=== PATIENT | female | born 1950 | race Caucasian/White ===

== ENCOUNTER 2019-05-02 18:27 | Emergency (ER) | payer BC ==
[2019-05-02 18:46] VITALS: TEMP 98.3; BMI 31.6
[2019-05-02] MEDS ORDERED: KETOROLAC TROMETHAMINE 60 MG/2 ML VIAL ONE (19:17)
[2019-05-02] MEDS ORDERED: KETOROLAC TROMETHAMINE 60 MG/2 ML VIAL IM ONE (19:21)
[2019-05-02] MEDS ORDERED: PROPOFOL 20 ML ONE (19:43)
--- NOTE | 2019-05-02 22:13 | PDOC ---
Documentation entered by Martinez Celaya SCRIBE, acting as scribe for Thais Meyers MD. Thais Meyers MD: This documentation has been prepared by the Belia shea Elijah, SCRIBE, under my direction and personally reviewed by me in its entirety. I confirm that the documentation accurately reflects all work, treatment, procedures, and medical decision making performed by me. History of Present Illness - General Chief Complaint: Injury Stated Complaint: RIGHT ARM/SHOULDER INJURY - History of Present Illness Initial Comments: 05/02/19 19:23 Patient is a 68 year old female with a significant past medical history of diverticulitis, varicose veins in lower extremities HTN, HLD and hypothyroidism who presents to the ED from [facility] with a right shoulder injury. Patient was walking yesterday around 2 pm when she tripped on wires and fell forward. Patient landed on her right shoulder but denies hitting her head, face and chest on the fall. Today the patient was seen by Dr. Gomez at [facility], where X-Rays were done and she was told to come to the ED. Allergies: NKDA PCP: Dr. Boston Past History - Past Medical History Allergies/Adverse Reactions: Allergies Allergy/AdvReac Type Severity Reaction Status Date / Time No Known Drug Allergies Allergy Verified 05/02/19 18:28 Home Medications: Ambulatory Orders Levothyroxine [Synthroid -] 88 mcg PO DAILY@0700 #0 tablet 03/16/14 Lisinopril [Prinivil] 10 mg PO DAILY #0 tablet 03/16/14 Ketorolac Tromethamine [Toradol] 10 mg PO TID PRN #15 tablet 05/02/19 Oxycodone HCl/Acetaminophen [Percocet 5-325 mg Tablet] 1 tab PO Q6H PRN #10 tablet MDD 4 tabs 05/02/19 Anemia: No Asthma: No Cancer: No Cardiac Disorders: No CVA: No COPD: No CHF: No Dementia: No Diabetes: No GI Disorders: Yes (DIVERTICULOSIS) Disorders: No HTN: Yes Hypercholesterolemia: Yes Liver Disease: No Seizures: No Thyroid Disease: Yes - Surgical History Orthopedic Surgery: Yes (LEFT ANKLE SX FRACTURE X2) - Suicide/Smoking/Psychosocial Hx Smoking History: Never smoked Have you smoked in the past 12 months: No Number of Cigarettes Smoked Daily: 0 Information on smoking cessation initiated: No Hx Alcohol Use: No Drug/Substance Use Hx: No Substance Use Type: None Hx Substance Use Treatment: No Review of Systems - Review of Systems Comments:: 05/02/19 19:23 All systems are reviewed and negative except as noted in the HPI *Physical Exam - Vital Signs Last Vital Signs Temp Pulse Resp BP Pulse Ox 98.3 F 56 L 16 178/60 H 99 05/02/19 18:28 05/02/19 18:28 05/02/19 18:28 05/02/19 18:28 05/02/19 18:28 - Physical Exam Comments: 05/02/19 19:24 GENERAL: Awake, alert, and fully oriented, in no acute distress HEAD: No signs of trauma EYES: PERRLA, EOMI, sclera anicteric, conjunctiva clear ENT: Auricles normal inspection, hearing grossly normal, nares patent, oropharynx clear without exudates. Moist mucosa NECK: Normal ROM, supple, no lymphadenopathy, JVD, or masses LUNGS: Breath sounds equal, clear to auscultation bilaterally. No wheezes, and no crackles HEART: Regular rate and rhythm, normal S1 and S2, no murmurs, rubs or gallops ABDOMEN: Soft, nontender, normoactive bowel sounds. No guarding, no rebound. No masses EXTREMITIES: +Pain in proximal portion in R Humerus with pain on abduction of upper arm. +Radial Pulse briskly palpable. No deformity in R Shoulder or pain in Elbow and wrist. NEUROLOGICAL: Cranial nerves II through XII intact. Normal speech, normal gait SKIN: Warm, Dry, normal turgor, no rashes or lesions noted. CD of R Shoulder/ R Humerus X-Ray performed at [facility] was brought in by the patient. This was reviewed: anterior dislocation of Right shoulder, No fracture evident. Procedures - Joint Reduction Right Joint Reduction Site: right: Shoulder Pre-Procedure NV Exam: normal Conscious Sedation: Yes Reduction Attempts: 2 Procedure: Other (external rotation) Post-Procedure NV Exam: normal Complications: No Post Joint Reduction Film: questionable fracture fragment Splint: Yes Immobilized: Yes Progress: Procedure was performed under conscious sedation. Full details of the procedure is listed under conscious sedation form. IV access established and baseline vital signs taken Patient received 50 mg of propofol IV over 25 seconds. Patient appeared to be sedated and Reduction attempted through external rotation technique. When patient complained of pain during manipulation, additional 50 mg of propofol IV given approximately 5 minutes after first dose. Sedation was more adequate and external rotation technique again used for attempted reduction. Despite adequate relaxation and sedation, reduction not achieved. Patient's position adjusted. At this point, patient was becoming alert. She then received additional 80 mg of propofol IV over 1 minute. After this dose of sedation, muscle spasm appeared be minimized. External rotation technique again used for reduction with audible and palpable "click" at the shoulder joint. Mobility appear to be more normal. When patient awakened however she complained of pain in the shoulder with tenderness on palpation. Neurovascular functioning intact after reduction. Post reduction x-ray was performed and interpretation was obtained from Dr. Kapoor of the radiology staff: No persistent dislocation evident. There was questionable semicircular density below the humeral head, either artifact or fracture fragment. ED Treatment Course - RADIOLOGY Radiology Studies Ordered: Category Date Time Status SHOULDER-RIGHT [RAD] Stat Radiology 05/02/19 20:53 Completed - Medications Given in the ED: ED Medications Discontinued Medications Generic Name Dose Route Start Last Admin Trade Name Freq PRN Reason Stop Dose Admin Ketorolac Tromethamine 60 mg 05/02/19 19:21 05/02/19 19:22 Toradol Injection - IM 05/02/19 19:22 60 mg ONCE ONE Administration Medical Decision Making - Medical Decision Making As noted above, this 68-year-old woman referred here from [facility] orthopedics ( ) with a history of right shoulder injury sustained yesterday; x-ray done at the orthopedic office revealed anterior dislocation of the shoulder. Patient was told that orthopedist could not reduce the shoulder in the office because she needed strong medication to counteract the muscle spasm related to shoulder being dislocated for 24 hours. Exam as noted. Reduction achieved as noted above. Patient was alert and totally oriented, ambulating without difficulty Persistent pain after reduction could be explained by possible fracture fragment seen on post reduction x-ray. When the patient and her sister were told of possible fracture seen in this x-ray, they recalled that had remarked that he thought there might be a small fracture present on the x-ray that was taken in his office. Patient's right upper extremity placed in a sling. Patient is told that she must keep the sling in place until seen by her orthopedist. Ice can also be applied to the shoulder for the next 48 hours to minimize edema Patient had received Toradol 60 mg IM soon after presentation here; she states that she had good relief of her pain from this and asked for prescription of the oral dose of this medication. Prescription for Toradol 10 mg to be used up to 3 times a day as needed for mild to moderate pain sent to her pharmacy. Patient was given 1 tab of Percocet 5/325 here in the ER (patient will be driven home by her sister). She was also given at tablet of Percocet 5/325 by me to be taken as needed overnight or in the sign poster hours prior to obtaining her prescription (Percocet 5/325, #10 up to 4 tabs a day as needed for severe pain) Patient states that Dr. Wynn had told her that he would call her tomorrow morning and follow-up appointment would be arranged. *DC/Admit/Observation/Transfer Diagnosis at time of Disposition: Dislocation of right shoulder joint Qualifiers: Encounter type: initial encounter Qualified Code(s): S43.004A - Unspecified dislocation of right shoulder joint, initial encounter - Discharge Dispostion Disposition: HOME Condition at time of disposition: Stable - Prescriptions Prescriptions: Ketorolac Tromethamine [Toradol] 10 mg PO TID PRN #15 tablet PRN Reason: Severe Pain Oxycodone HCl/Acetaminophen [Percocet 5-325 mg Tablet] 1 tab PO Q6H PRN #10 tablet MDD 4 tabs PRN Reason: Severe Pain - Referrals Referrals: Jean Gomez MD [Staff Physician] - Call tomorrow - Patient Instructions Printed Discharge Instructions: Shoulder Dislocation Additional Instructions: Keep sling in place at all times until seen by orthopedist Can continue to place ice to shoulder for the next 48 hours Toradol 10 mg 3 times a day as needed for mild to moderate pain/take with food Percocet 5/325 as needed for severe pain Call Dr. Gomez's office tomorrow to arrange follow-up - Post Discharge Activity
[2019-05-03] MEDS ORDERED: PROPOFOL 200 MG/20 ML VIAL IVPUSH ONE ×3 (06:00→06:04)
[2019-05-03 07:57] VITALS: BP 175/79; PULSE 57
== END 2019-05-02 22:10 | disposition home or self-care (01) ==
LOC: FER 18:27
PROC: 3E0333Z Introduction of Anti-inflammatory into Peripheral Vein, Percutaneous Approach (ICD-10-PCS; principal; 2019-05-02)
PROC: 0RSJXZZ Reposition Right Shoulder Joint, External Approach (ICD-10-PCS; 2019-05-02)
DX: S43.004A Unspecified dislocation of right shoulder joint, initial encounter (principal); W18.39XA Other fall on same level, initial encounter; Y93.9 Activity, unspecified; Y92.89 Other specified places as the place of occurrence of the external cause; I10 Essential (primary) hypertension; E78.00 Pure hypercholesterolemia, unspecified; E07.9 Disorder of thyroid, unspecified
CPT/HCPCS: 73030-TC-RT-FY; 99283-25

== ENCOUNTER 2019-06-17 06:10 | Day surgery (SDC) | payer BC ==
[2019-06-16 15:29] VITALS: BMI 30.9
[2019-06-17] MEDS ORDERED: ROPIVACAINE HCL 0.5% 30ML VIAL ONE (07:07)
[2019-06-17] MEDS ORDERED: MIDAZOLAM HCL 2 MG/2 ML SINGLE DOSE VIAL ONE (07:07)
[2019-06-17] MEDS ORDERED: EPINEPHrine 1:1,000 1 MG/1 ML - 30ML VIAL (INJECTION) ONE (07:09)
[2019-06-17] MEDS ORDERED: SUCCINYLCHOLINE CHLORIDE 200 MG/10 ML SYRINGE ONE (07:11)
[2019-06-17] MEDS ORDERED: PROPOFOL 20 ML ONE ×5 (07:11→09:19)
[2019-06-17] MEDS ORDERED: DEXAMETHASONE SOD PHOSPHATE 4 MG/1 ML VIAL ONE (07:12)
[2019-06-17] MEDS ORDERED: LIDOCAINE HCL/PF 2% SDV 5ML VIAL ONE (07:12)
[2019-06-17] MEDS ORDERED: ceFAZolin SODIUM 1 GM VIAL ONE (07:12)
[2019-06-17] MEDS ORDERED: ONDANSETRON 4 MG/2 ML VIAL ONE ×2 (07:12→10:11)
[2019-06-17] MEDS ORDERED: SODIUM CHLORIDE 0.9% P/F 10 ML VIAL IJ ONE (07:12)
[2019-06-17] MEDS ORDERED: EPHEDRINE SULFATE/0.9% NACL/PF 50 MG/10 ML SYRINGE NR ONE (07:52)
[2019-06-17] MEDS ORDERED: LABETALOL HCL 5 MG/1 ML (100MG/20 ML VIAL) ONE (08:26)
[2019-06-17 12:20] VITALS: BP 130/58; PULSE 56; TEMP 97.8
[2019-06-17] MEDS ORDERED: oxyCODONE HCL 5 MG TABLET PO PRN ×2 (13:12)
[2019-06-17] MEDS ORDERED: ONDANSETRON 4 MG/2 ML VIAL IVPUSH PRN (13:12)
[2019-06-17] MEDS ORDERED: LACTATED RINGERS SOLUTION 1,000 ML IV SCH (13:15)
--- NOTE | 2019-06-17 13:39 | OP ---
DATE OF OPERATION: 06/17/2019 Done at [facility] SURGEON: Timbo Sun MD PERFORATOR OPERATOR: UMER Mccoy PREOPERATIVE DIAGNOSES: 1. Right shoulder rotator cuff tear. 2. Right shoulder instability with labral tear. 3. Right shoulder adhesive capsulitis. 4. Right shoulder impingement. 5. Right shoulder acromioclavicular degenerative joint disease. 6. Right shoulder superior labral tear, anterior and posterior synovitis. 7. Right shoulder long head biceps tear. POSTOPERATIVE DIAGNOSES: 1. Right shoulder rotator cuff tear. 2. Right shoulder instability with labral tear. 3. Right shoulder adhesive capsulitis. 4. Right shoulder impingement. 5. Right shoulder acromioclavicular degenerative joint disease. 6. Right shoulder superior labral tear, anterior and posterior synovitis. 7. Right shoulder long head biceps tear. PROCEDURES: 1. Right shoulder arthroscopy with rotator cuff repair. 2. Right shoulder arthroscopy with capsulorraphy including labral repair and repair of bony Bankart. 3. Right shoulder arthroscopy with lysis and resection of adhesions. 4. Right shoulder arthroscopy with subacromial decompression. 5. Right shoulder joint. 6. Right shoulder arthroscopy with debridement. 7. Right shoulder arthroscopy with biceps release. CPT CODES: 92139, 53593, 04270, 60821, 69869, 29949, 53539. FINDINGS: 1. Evidence of dislocation. 2. Anterior labral tear from 1 o'clock to 6 o'clock position. 3. Bony Bankart 4 cm x 2 cm bottom right quadrant of glenoid. 4. Central grade 2-3 cartilage in the glenoid and humerus. 5. Full-thickness rotator cuff tear, split tear along the supraspinatus. 6. An 80% biceps tear along head. 7. Thickened scar tissue and adhesions in the glenohumeral joint. 8. Thickened scar tissue subacromial space with adhesion and scar tissue. 9. Inferior spurs to clavicle, acromioclavicular joint disease. REPAIR TYPE: Labrum was repaired using anchors at the 1 o'clock, 2 o'clock, 4 o'clock, and 5 o'clock position. Alternating mattress and simple sutures were placed around the bony area of the bony Bankart as well as the soft tissue reducing the anterior capsule size allowing for an anterior barrier. Biceps tendon was completely released due to extensive tearing. The rotator cuff was closed at the base using 4 [id number] sutures with the posterior portion secured to a bleeding bone bed and then a [id number] suture on the most medial portion secured to a bleeding bone bed taking traction off the entire repair so a total of 5 side to sides and 2 anchors were placed. DESCRIPTION OF PROCEDURE: Informed consent was obtained. The patient was taken to the operating room, where the upper extremity was prepped and draped in a sterile fashion. The shoulder was manipulated for a full range of motion. A posterior incision portal was made and directed to the glenohumeral joint. Under direct visualization, an anterior incision and portal was made. Extensive synovitis, as well as chondral injuries throughout the glenohumeral joint were debrided and removed. Any identified labral injuries, including the superior labral tear, anterior and posterior, and anterior labrum torn portions, were removed as well. The rotator cuff was visualized and noted to have a full-thickness tear. The edges were debrided. The posterior incision portal was redirected to the subacromial space where a lateral incision portal was made. Excessive and thickened scar tissue noted throughout the subacromial space, including bursal and scar tissue, were removed. The type 2 acromion was converted into a flattened type 1 using a bur for subacromial decompression. The distal inferior spur at the distal clavicle was also debrided with the use of an accessory portal in the acromioclavicular joint. Prior to the rotator cuff repair, an accessory portal was made anteriorly. Anchors were placed as described above, and repair of the labrum was described in the findings. This allowed for reduction and secure fixation of the anterior labrum and bony Bankart.The edges of the rotator cuff were identified. Sutures were placed into the rotator cuff and secured using anchors through the greater tuberosity. Prior to securing, a bleeding bed was made using a small bur, creating a bleeding surface of the rotator cuff insertion. The shoulder was then drained, a single suture was placed in all portals, a sterile dressing was placed and the patient was transferred to the recovery room without complication. The PA listed above was present and assisted at surgery. Their presence was absolutely medically necessary for the completion of the procedure. They helped hold the arthroscopy, pass instruments (and implants when indicated) and the procedure could not have been completed without their assistance. TIMBO SUN M.D. [id number]
--- NOTE | 2019-06-22 16:59 | PATH ---
Surgical Pathology Report Patient Name: URSULA GUAN Med. Rec. #: [id number] /Age/Gender: 1950 (Age: 68) / F Account: [id number] Location: [facility] Taken: 06/17/2019 Received: 06/17/2019 Reported: 06/22/2019 Physicians: Jean Gomez M.D. Specimen(s) Received RIGHT SHOULDER SHAVINGS Clinical History Right shoulder, rotator cuff repair Final Diagnosis SHOULDER SHAVINGS, RIGHT, ROTATOR CUFF REPAIR, LABIAL REPAIR, DECOMPRESSION: FRAGMENTS OF BENIGN CARTILAGE, DENSE FIBROCONNECTIVE TISSUE, ADIPOSE TISSUE, SKELETAL MUSCLE, BONE, AND FIBROSYNOVIAL TISSUE WITH CHRONIC INFLAMMATION AND REACTIVE CHANGES. Electronically Signed Jewels Lee M.D. Gross Description Received in formalin, labeled "right shoulder shavings" is a 3.8 x 3.5 x 1 cm aggregate of baltazar, yellow and brown tissue. Music Theory Teacher tissue is submitted in one cassette. AE/06/22/2019 ebram/06/22/2019
== END 2019-06-17 12:20 | disposition home or self-care (01) ==
LOC: FASU 06:10
PROVIDERS: ATTEND Orthopaedic Surgery
PROC: 0LS14ZZ Reposition Right Shoulder Tendon, Percutaneous Endoscopic Approach (ICD-10-PCS; 2019-06-17)
PROC: 0RNJ4ZZ Release Right Shoulder Joint, Percutaneous Endoscopic Approach (ICD-10-PCS; 2019-06-17)
PROC: 0RQJ4ZZ Repair Right Shoulder Joint, Percutaneous Endoscopic Approach (ICD-10-PCS; 2019-06-17)
PROC: 0RBJ4ZZ Excision of Right Shoulder Joint, Percutaneous Endoscopic Approach (ICD-10-PCS; 2019-06-17)
PROC: 0PB94ZZ Excision of Right Clavicle, Percutaneous Endoscopic Approach (ICD-10-PCS; 2019-06-17)
PROC: 0LQ14ZZ Repair Right Shoulder Tendon, Percutaneous Endoscopic Approach (ICD-10-PCS; principal; 2019-06-17 08:08)
DX: M75.121 Complete rotator cuff tear or rupture of right shoulder, not specified as traumatic (principal); M24.111 Other articular cartilage disorders, right shoulder; M75.01 Adhesive capsulitis of right shoulder; M75.41 Impingement syndrome of right shoulder; M19.011 Primary osteoarthritis, right shoulder; M65.811 Other synovitis and tenosynovitis, right shoulder; S46.111A Strain of muscle, fascia and tendon of long head of biceps, right arm, initial encounter; X58.XXXA Exposure to other specified factors, initial encounter; Y93.9 Activity, unspecified; Y92.9 Unspecified place or not applicable
CPT/HCPCS: 88305-TC; 94760

== ENCOUNTER 2024-04-09 20:00 | Emergency (ER) | payer OTHER, BC ==
[2024-04-09 20:33] VITALS: BP 152/90; PULSE 61; RESP 18; BMI 21.7
[2024-04-09] MEDS ORDERED: AMOXICILLIN 500 MG CAPSULE (FP) ONE (21:07)
[2024-04-09] MEDS ORDERED: ACETAMINOPHEN 325 MG TABLET (FP) ONE (21:07)
[2024-04-09] MEDS: AMOXICILLIN 500 MG CAPSULE (FP) PO ONE (21:14)
[2024-04-09] MEDS: ACETAMINOPHEN 325 MG TABLET (FP) PO ONE (21:14)
[2024-04-09] MEDS ORDERED: BUPIVACAINE HCL/PF 0.5% (5MG/ML) 10 ML VIAL ONE (21:52)
[2024-04-09] MEDS: BUPIVACAINE HCL 0.25% 125 MG/50 ML VIAL INF ONE (22:12)
[2024-04-09 22:39] VITALS: TEMP 98.6
== END 2024-04-09 22:45 | disposition home or self-care (01) ==
LOC: JER 20:00
DX: R68.84 Jaw pain (principal); K08.89 Other specified disorders of teeth and supporting structures; K04.7 Periapical abscess without sinus
CPT/HCPCS: 99283-25